=== PATIENT | female | born 1935 | race Caucasian/White ===

== ENCOUNTER 2020-03-20 15:22 | Emergency (ER) | payer MEDICARE, OTHER ==
[~2020-03-20 15:22] MED LIST: ABILIFY 2 MG TAB2 MG PO; ARICEPT10 MG PO; AZITHROMYCIN250 MG PO; BACLOFEN10 MG PO; CALCIUM 600 +1 EAC7 PO; CEFUROXIME250 MG PO; ECOTRIN81 MG PO; IPRAT-ALBUT 0.5-3 ML NEB; MACROBID 100 M100 MG PO; MECLIZINE HCL12.5 MG PO; MEDROL DOSEPAK 24 MG PO; MYRBETRIQ25 MG PO; NAMENDA XR28 MG PO; OMNICEF 300 MG300 MG PO; PROTONIX40 MG PO; ROBITUSSIN AC480 ML PO; SYNTHROID75 MCG PO; TESSALON PERLE100 MG PO; ZOFRAN ODT 4 MG4 MG PO; ZOFRAN4 MG PO; ZOLOFT100 MG PO
[2020-03-20 16:16] LABS: HEMOGLOBIN 13.7 gm/dl (12.3-15.3); RED BLOOD COUNT 4.6 M/UL (4.00-5.10)
[2020-03-20 18:43] LABS: BUN/CREATININE RATIO 16 (0-10)
[2020-03-20] MEDS ORDERED: MACROBID 100 M100 MG PO (18:53)
== END 2020-03-20 19:25 | disposition home or self-care (01) ==
LOC: ER1 15:22
PROVIDERS: Physician Assistant
DX: N39.0 Urinary tract infection, site not specified (principal); R42 Dizziness and giddiness; G31.9 Degenerative disease of nervous system, unspecified; I10 Essential (primary) hypertension
CPT/HCPCS: 70450; 71045; 80053; 81001; 82550; 82553; 83874; 84484; 85025; 87086; 93005; 96374; 99284; J2405

== ENCOUNTER 2020-03-31 17:43 | Emergency (ER) | payer MEDICARE, OTHER ==
[2020-03-31 19:12] LABS: HEMOGLOBIN 12.6 gm/dl (12.3-15.3); RED BLOOD COUNT 4.19 M/UL (4.00-5.10); WHITE BLOOD COUNT 5.9 K/UL (4.5-11.0)
[2020-03-31 19:34] LABS: BUN/CREATININE RATIO 15 (0-10)
== END 2020-03-31 20:56 | disposition home or self-care (01) ==
LOC: ER1 17:43
PROVIDERS: Physician Assistant
DX: M54.6 Pain in thoracic spine (principal); R10.30 Lower abdominal pain, unspecified; I10 Essential (primary) hypertension
CPT/HCPCS: 80048; 81001; 85025; 87086; 96374; 99284; J1885

== ENCOUNTER 2020-05-15 11:46 | Emergency (ER) | payer MEDICARE, OTHER ==
[2020-05-15 12:27] LABS: HEMOGLOBIN 14.3 gm/dl (12.3-15.3); RED BLOOD COUNT 4.74 M/UL (4.00-5.10); WHITE BLOOD COUNT 5.2 K/UL (4.5-11.0)
[2020-05-15] MEDS ORDERED: MEDROL DOSEPAK 24 MG PO (15:27)
[2020-05-15] MEDS ORDERED: VIBRAMYCIN 100100 MG PO (15:27)
== END 2020-05-15 16:21 | disposition home or self-care (01) ==
LOC: ER1 11:46
PROVIDERS: Physician Assistant Medical
DX: U07.1 COVID-19 (principal); I10 Essential (primary) hypertension
CPT/HCPCS: 0240U; 36415; 71045; 80053; 81001; 85025; 99283

== ENCOUNTER 2020-05-24 10:54 | Emergency (ER) | payer MEDICARE, OTHER ==
[~2020-05-24 10:54] MED LIST changes: +VIBRAMYCIN 100100 MG PO
[2020-05-24 12:16] LABS: HEMOGLOBIN 14.7 gm/dl (12.3-15.3); RED BLOOD COUNT 4.83 M/UL (4.00-5.10); WHITE BLOOD COUNT 8.7 K/UL (4.5-11.0)
[2020-05-24 12:45] LABS: BUN/CREATININE RATIO 17 (0-10)
[2020-05-24] MEDS ORDERED: CEFUROXIME500 MG PO (15:54)
== END 2020-05-24 17:14 | disposition home or self-care (01) ==
LOC: ER1 10:54
PROVIDERS: Physician Assistant
DX: N39.0 Urinary tract infection, site not specified (principal); R42 Dizziness and giddiness; K21.9 Gastro-esophageal reflux disease without esophagitis; J44.9 Chronic obstructive pulmonary disease, unspecified; E03.9 Hypothyroidism, unspecified; Z90.49 Acquired absence of other specified parts of digestive tract; Z90.710 Acquired absence of both cervix and uterus; Z88.8 Allergy status to other drugs, medicaments and biological substances; Z86.16 Personal history of COVID-19
CPT/HCPCS: 70450; 71045; 80053; 81001; 82550; 82553; 83874; 84484; 85025; 87086; 99285; J7040

== ENCOUNTER 2020-07-20 14:43 | Emergency (ER) | payer MEDICARE, OTHER ==
[~2020-07-20 14:43] MED LIST changes: +CEFUROXIME500 MG PO
[2020-07-20 16:13] LABS: HEMOGLOBIN 13.2 gm/dl (12.3-15.3); RED BLOOD COUNT 4.41 M/UL (4.00-5.10); WHITE BLOOD COUNT 6.3 K/UL (4.5-11.0)
[2020-07-20 16:40] LABS: BUN/CREATININE RATIO 12 (0-10)
[2020-07-20] MEDS ORDERED: MECLIZINE HCL12.5 MG PO (18:39)
== END 2020-07-20 18:30 | disposition home or self-care (01) ==
LOC: ER1 14:43
PROVIDERS: Student in an Organized Health Care Education/Training Program
DX: R42 Dizziness and giddiness (principal); J44.9 Chronic obstructive pulmonary disease, unspecified; Z79.899 Other long term (current) drug therapy
CPT/HCPCS: 70450; 80053; 81001; 82550; 82553; 83874; 83880; 84484; 85025; 93005; 99284; J7120

== ENCOUNTER 2020-09-09 13:21 | Emergency (ER) | payer MEDICARE, OTHER ==
[2020-09-09 14:24] LABS: HEMOGLOBIN 13.4 gm/dl (12.3-15.3); RED BLOOD COUNT 4.44 M/UL (4.00-5.10); WHITE BLOOD COUNT 7.1 K/UL (4.5-11.0)
[2020-09-09] MEDS ORDERED: MECLIZINE HCL25 MG PO (15:31)
== END 2020-09-09 16:10 | disposition home or self-care (01) ==
LOC: ER1 13:21
PROVIDERS: Emergency Medicine
DX: R42 Dizziness and giddiness (principal); E03.9 Hypothyroidism, unspecified; Z90.49 Acquired absence of other specified parts of digestive tract; Z90.710 Acquired absence of both cervix and uterus; Z79.899 Other long term (current) drug therapy
CPT/HCPCS: 80053; 85025; 93005; 99284

== ENCOUNTER 2021-01-06 15:48 | Emergency (ER) | payer OTHER ==
[~2021-01-06 15:48] MED LIST changes: +MECLIZINE HCL25 MG PO
[2021-01-06 16:50] LABS: HEMOGLOBIN 13.6 gm/dl (12.3-15.3); RED BLOOD COUNT 4.52 M/UL (4.00-5.10); WHITE BLOOD COUNT 7.5 K/UL (4.5-11.0)
[2021-01-06 17:06] LABS: BUN/CREATININE RATIO 17 (0-10)
[2021-01-06] MEDS ORDERED: MACROBID 100 M100 M1 PO (20:04)
[2021-01-06] MEDS ORDERED: ZOFRAN ODT 4 MG4 MG SL (20:41)
== END 2021-01-06 20:54 | disposition home or self-care (01) ==
LOC: ER1 15:48
PROVIDERS: Emergency Medicine
DX: N39.0 Urinary tract infection, site not specified (principal); I10 Essential (primary) hypertension; Z20.822 Contact with and (suspected) exposure to COVID-19; R55 Syncope and collapse
CPT/HCPCS: 70450; 71045; 80053; 81001; 82550; 82553; 83874; 83880; 84484; 85025; 87086; 93005; 96374; 99285; J2405; U0002

== ENCOUNTER 2021-04-19 11:58 | Emergency (ER) | payer OTHER ==
[~2021-04-19 11:58] MED LIST changes: +MACROBID 100 M100 M1 PO; +ZOFRAN ODT 4 MG4 MG SL
[2021-04-19 12:43] LABS: HEMOGLOBIN 12.9 gm/dl (12.3-15.3); RED BLOOD COUNT 4.38 M/UL (4.00-5.10); WHITE BLOOD COUNT 5.1 K/UL (4.5-11.0)
[2021-04-19 13:11] LABS: BUN/CREATININE RATIO 12 (0-10)
[2021-04-19] MEDS ORDERED: ATIVAN0.5 MG PO ×2 (16:20→16:22)
== END 2021-04-19 17:10 | disposition home or self-care (01) ==
LOC: ER1 11:58 → CDU 14:43 → ER1 17:10
PROVIDERS: Physician Assistant
DX: R42 Dizziness and giddiness (principal)
CPT/HCPCS: 0240U; 70450; 80048; 81001; 82550; 82553; 83874; 84484; 85025; 87081; 87880; 93005; 99285

== ENCOUNTER 2021-07-11 21:50 | Observation (INO) | payer MEDICARE, OTHER ==
[~2021-07-11] VITALS: Ht 165.1 cm; Wt 54.0 kg
[~2021-07-11 21:50] MED LIST changes: +ATIVAN0.5 MG PO
[2021-07-12 00:42] LABS: HEMOGLOBIN 13.3 gm/dl (12.3-15.3); RED BLOOD COUNT 4.52 M/UL (4.00-5.10); WHITE BLOOD COUNT 13.1 K/UL (4.5-11.0)
[2021-07-12 01:05] LABS: BUN/CREATININE RATIO 19 (0-10)
[2021-07-12] MEDS ORDERED: PAXIL10 MG PO (05:05)
[2021-07-12] MEDS ORDERED: MECLIZINE HCL12.5 MG PO (09:24)
[2021-07-12] MEDS ORDERED: CARAC30 GM EARRT (12:43)
[2021-07-12] MEDS ORDERED: DAILY VITE1 EACH PO (13:29)
[2021-07-13 07:08] LABS: HEMOGLOBIN 11.2 gm/dl (12.3-15.3); RED BLOOD COUNT 3.73 M/UL (4.00-5.10); WHITE BLOOD COUNT 17.1 K/UL (4.5-11.0)
[2021-07-13 07:34] LABS: BUN/CREATININE RATIO 24 (0-10)
[2021-07-14] MEDS ORDERED: METOPROLOL SUCC25 MG PO (11:52)
--- NOTE | 2021-07-14 15:03 | NUR ---
pt has tolerated getting up in the chair at the bedside. chair alarm in place and yellow gown and socks.
== END 2021-07-14 17:10 | disposition home or self-care (01) ==
LOC: ER1 21:50 → MED SURG 4 07-12 02:08 → PROG CARE 07-12 02:08 → CDU 07-12 02:08 → PROG CARE 07-12 04:20 → MED SURG 4 07-13 22:39
PROVIDERS: Physician Assistant; ADMIT Internal Medicine
DX: J96.01 Acute respiratory failure with hypoxia (principal); R13.10 Dysphagia, unspecified; G30.1 Alzheimer's disease with late onset; F02.80 Dementia in other diseases classified elsewhere, unspecified severity, without behavioral disturbance, psychotic disturbance, mood disturbance, and anxiety; I10 Essential (primary) hypertension; J44.9 Chronic obstructive pulmonary disease, unspecified; K21.9 Gastro-esophageal reflux disease without esophagitis; E03.9 Hypothyroidism, unspecified; Z20.822 Contact with and (suspected) exposure to COVID-19; Z88.1 Allergy status to other antibiotic agents; Z88.8 Allergy status to other drugs, medicaments and biological substances; Z87.891 Personal history of nicotine dependence; Z79.82 Long term (current) use of aspirin; Z79.890 Hormone replacement therapy; Z79.899 Other long term (current) drug therapy
CPT/HCPCS: 0240U; 36415; 36600; 51702; 71045; 74018; 80048; 80053; 81001; 82550; 82553; 82803; 83605; 83880; 84439; 84443; 84484; 85025; 87070; 87205; 92610; 93005; 94640; 94664; 94760; 96365; 96366; 96372; 96374; 96375; 96376; 99285; G0378; J0295; J0696; J1650; J2920; J2930; J7030

== ENCOUNTER 2021-09-10 15:04 | Emergency (ER) | payer MEDICARE, OTHER ==
[~2021-09-10 15:04] MED LIST changes: +CARAC30 GM EARRT; +DAILY VITE1 EACH PO; +METOPROLOL SUCC25 MG PO; +PAXIL10 MG PO
[2021-09-10 16:42] LABS: HEMOGLOBIN 13.2 gm/dl (12.3-15.3); RED BLOOD COUNT 4.41 M/UL (4.00-5.10); WHITE BLOOD COUNT 6.7 K/UL (4.5-11.0)
[2021-09-10] MEDS ORDERED: CEFUROXIME500 MG PO (18:15)
== END 2021-09-10 18:50 | disposition home or self-care (01) ==
LOC: ER1 15:04
PROVIDERS: Preventive Medicine Occupational Medicine
DX: N39.0 Urinary tract infection, site not specified (principal); I10 Essential (primary) hypertension
CPT/HCPCS: 70450; 80053; 81001; 85025; 86140; 87086; 96374; 99284; J0696

== ENCOUNTER 2021-12-08 10:52 | Emergency (ER) | payer MEDICARE, OTHER ==
[2021-12-08 12:41] LABS: HEMOGLOBIN 12.6 gm/dl (12.3-15.3); RED BLOOD COUNT 4.27 M/UL (4.00-5.10); WHITE BLOOD COUNT 5.4 K/UL (4.5-11.0)
[2021-12-08 13:02] LABS: BUN/CREATININE RATIO 17 (0-10)
[2021-12-08] MEDS ORDERED: CEFUROXIME500 MG PO (15:39)
== END 2021-12-08 16:47 | disposition home or self-care (01) ==
LOC: ER1 10:52
PROVIDERS: Physician Assistant
DX: N39.0 Urinary tract infection, site not specified (principal); R42 Dizziness and giddiness; Z20.822 Contact with and (suspected) exposure to COVID-19; I10 Essential (primary) hypertension; Z88.8 Allergy status to other drugs, medicaments and biological substances
CPT/HCPCS: 70450; 80053; 81001; 82550; 82553; 84439; 84443; 84484; 85025; 87077; 87086; 87186; 93005; 96374; 99284; J0696; U0002